=== PATIENT | male | born 1985 | race Caucasian/White ===

== ENCOUNTER 2018-07-21 19:39 | Emergency (ER) | payer MEDICAID ==
[~2018-07-21] VITALS: Ht 175.3 cm; Wt 95.5 kg
[2018-07-21 19:42] VITALS: BP 124/78
== END 2018-07-21 21:55 | disposition home or self-care (01) ==
LOC: ER 19:42
DX: F10.129 Alcohol abuse with intoxication, unspecified (principal); Y90.9 Presence of alcohol in blood, level not specified
CPT/HCPCS: 99284